=== PATIENT | female | born 1960 | race Caucasian/White ===

== ENCOUNTER 2020-12-23 13:09 | Emergency (ER) | payer OTHER ==
[2020-12-23] MEDS ORDERED: SODIUM CHLORIDE 1,000 ML IV STA (13:39)
[2020-12-23 14:00] VITALS: BP 116/73; PULSE 99; TEMP 99.2; BMI 28.3
[2020-12-23 14:33] LABS: HEMOGLOBIN 9.1 GM/dl (10.7-15.3); MCHC 33.7 g/dl (32.0-36.0); PLATELET COUNT 268 10^3/uL (134-434); RBC 2.23 M/mm3 (3.60-5.2); RDW 18.8 % (11.6-15.6); WHITE BLOOD COUNT 7.6 K/mm3 (4.0-10.8)
[2020-12-23 14:36] LABS: ADD RBC MORPHOLOGY YES; MCH 40.8 pg (25.7-33.7)
[2020-12-23 14:45] LABS: ALBUMIN 3.4 g/dl (3.4-5.0); ALK PHOS 129 U/L (45-117); ANION GAP 7 MMOL/L (8-16); BILIRUBIN,TOTAL 1.3 mg/dl (0.2-1); CALCIUM 8.4 mg/dl (8.5-10); CHLORIDE 98 mmol/L (98-107); CO2 29 mmol/L (21-32); CREATININE 0.7 mg/dl (0.55-1.3); GLUCOSE,RANDOM 108 mg/dl (74-106); SGOT/AST 18 U/L (15-37); SGPT/ALT 12 U/L (13-61); SODIUM 134 mmol/L (136-145); TOT PROT 6.3 g/dl (6.4-8.2)
[2020-12-23 15:13] LABS: ANISOCYTOSIS 2+; MACROCYTOSIS 2+
[2020-12-23 15:14] LABS: PLATELET ESTIMATE ADEQUATE
[2020-12-23 15:21] LABS: LIPASE 75 U/L (73-393)
[2020-12-23] MEDS ORDERED: metroNIDAZOLE 250 MG TABLET PO ONE (17:01)
[2020-12-23] MEDS ORDERED: levoFLOXacin 750 MG TABLET PO ONE (17:02)
[2020-12-23] MEDS ORDERED: metroNIDAZOLE 250 MG TABLET ONE (17:07)
== END 2020-12-23 17:10 | disposition home or self-care (01) ==
LOC: FER 13:09
PROC: 3E0337Z Introduction of Electrolytic and Water Balance Substance into Peripheral Vein, Percutaneous Approach (ICD-10-PCS; principal; 2020-12-23)
DX: K57.92 Diverticulitis of intestine, part unspecified, without perforation or abscess without bleeding (principal)
CPT/HCPCS: 36415; 74177-TC; 80053; 81003; 82550; 83690; 84484; 85025; 99285-25; Q9967

== ENCOUNTER 2022-09-07 14:30 | Inpatient (IN) | payer OTHER ==
[2022-09-07] MEDS ORDERED: ACETAMINOPHEN 1000 MG/100 ML BAG IVPB ONE (15:05)
[2022-09-07] MEDS ORDERED: SODIUM CHLORIDE 0.9% 1000 ML INFUS.BAG IV ONE ×2 (15:05→18:21)
[2022-09-07] MEDS ORDERED: PANTOPRAZOLE SODIUM 40 MG VIAL IVPUSH ONE (15:06)
[2022-09-07] MEDS ORDERED: ACETAMINOPHEN INJECTION 100 ML IVPB ONE (15:45)
[2022-09-07] MEDS ORDERED: PANTOPRAZOLE SODIUM 40 MG VIAL ONE (15:45)
[2022-09-07 15:52] LABS: HEMATOCRIT 28.1 % (32.4-45.2); HEMOGLOBIN 9.4 G/dL (10.7-15.3); MCH 31.8 pg (25.7-33.7); MCHC 33.5 g/dl (32.0-36.0); MEAN PLT VOLUME 7.8 fl (7.5-11.1); PLATELET COUNT 197.5 10^3/uL (134-434); RBC 2.96 10^6/uL (3.60-5.2); RDW 13.9 % (11.6-15.6); WHITE BLOOD COUNT 5.6 10^3/uL (4.0-10.8)
[2022-09-07 15:54] LABS: INR 0.93 (0.83-1.09); PROTHROMBIN TIME (PATIENT) 10.7 SEC (9.7-13.0)
[2022-09-07 15:57] LABS: ACTIVATED PTT 28.7 SECONDS (25.2-36.5)
[2022-09-07 16:00] LABS: ALBUMIN 2.8 g/dl (3.4-5.0); BILIRUBIN,TOTAL 0.8 mg/dl (0.2-1); CALCIUM 8.2 mg/dl (8.5-10); CREATININE 0.9 mg/dl (0.55-1.3); TOT PROT 5.3 g/dl (6.4-8.2)
[2022-09-07 18:18] LABS: LACTIC ACID 5.1 mmol/L (0.4-2.0)
[2022-09-07 18:24] LABS: PLATELET ESTIMATE ADEQUATE
[2022-09-07 19:23] LABS: HEMATOCRIT 20.5 % (32.4-45.2); MCH 31.9 pg (25.7-33.7); MCHC 33.6 g/dl (32.0-36.0); MEAN CELL VOLUME 94.9 fl (80-96); MEAN PLT VOLUME 8.2 fl (7.5-11.1); PLATELET COUNT 151.6 10^3/uL (134-434); RBC 2.16 10^6/uL (3.60-5.2); RDW 13.9 % (11.6-15.6)
[2022-09-07 19:25] LABS: HEMOGLOBIN 6.9 G/dL (10.7-15.3)
[2022-09-07 21:14] VITALS: BMI 26.6
[2022-09-07 22:24] LABS: MCH 32.6 pg (25.7-33.7); MCHC 34.1 g/dl (32.0-36.0); MEAN CELL VOLUME 95.7 fl (80-96); MEAN PLT VOLUME 8.1 fl (7.5-11.1); PLATELET COUNT 157.6 10^3/uL (134-434); RBC 2.09 10^6/uL (3.60-5.2); RDW 13.3 % (11.6-15.6); WHITE BLOOD COUNT 5.3 10^3/uL (4.0-10.8)
[2022-09-07 22:25] LABS: HEMOGLOBIN 6.8 G/dL (10.7-15.3)
[2022-09-08] MEDS: DEXTROSE 5%-NORMAL SALINE 1,000 ML IV SCH (03:30)
[2022-09-08 04:54] LABS: HEMATOCRIT 22.4 % (32.4-45.2); HEMOGLOBIN 7.2 GM/dL (10.7-15.3); MCH 29.5 pg (25.7-33.7); MCHC 32.3 g/dl (32.0-36.0); MEAN CELL VOLUME 91.3 fl (80-96); MEAN PLT VOLUME 8.3 fl (7.5-11.1); PLATELET COUNT 153 10^3/uL (134-434); RBC 2.45 M/mm3 (3.60-5.2); RDW 16.3 % (11.6-15.6); WHITE BLOOD COUNT 4.2 K/mm3 (4.0-10.0)
[2022-09-08] MEDS: INSULIN SLIDING SCALE (NOVOLOG) 1 VIAL SQ SCH ×4 (05:37→22:25)
[2022-09-08 07:23] LABS: MCH 30.1 pg (25.7-33.7); MCHC 32.5 g/dl (32.0-36.0); MEAN CELL VOLUME 92.8 fl (80-96); MEAN PLT VOLUME 8.2 fl (7.5-11.1); PLATELET COUNT 146 10^3/uL (134-434); RBC 2.07 M/mm3 (3.60-5.2); RDW 16.9 % (11.6-15.6); WHITE BLOOD COUNT 4.3 K/mm3 (4.0-10.0)
[2022-09-08 07:40] LABS: HEMATOCRIT 19.2 % (32.4-45.2)
[2022-09-08 08:10] LABS: CHLORIDE 114 mmol/L (98-107); SODIUM 145 mmol/L (136-145)
[2022-09-08 08:13] LABS: HEMOGLOBIN 6.2 GM/dL (10.7-15.3)
[2022-09-08 08:19] LABS: ANION GAP 4 MMOL/L (8-16); BLOOD UREA NITROGEN 17.4 mg/dL (7-18); CO2 27 mmol/L (21-32); GLUCOSE,RANDOM 83 mg/dL (74-106); MAGNESIUM 1.3 mg/dL (1.8-2.4)
[2022-09-08 08:22] LABS: CREATININE 0.6 mg/dL (0.55-1.3); PHOSPHOROUS 3.2 mg/dL (2.5-4.9)
[2022-09-08 08:23] LABS: CALCIUM 6.8 mg/dL (8.5-10.1)
[2022-09-08] MEDS ORDERED: CALCIUM GLUC IN NACL, ISO-OSM 1 GM/50 ML BAG IVPB ONE (08:39)
[2022-09-08] MEDS: PANTOPRAZOLE SODIUM 40 MG VIAL IVPUSH SCH (09:12)
[2022-09-08] MEDS: TIOTROPIUM BROMIDE 2.5 MCG (SPIRIVA) RESPIMAT INHALER IH SCH (09:20)
[2022-09-08] MEDS ORDERED: MAGNESIUM SULF 50% (8.12 MEQ/2 ML-1 GM VIAL) IVPB ONE (09:29)
[2022-09-08 11:53] LABS: CALCIUM 6.7 mg/dL (8.5-10.1)
[2022-09-08 12:17] LABS: BILIRUBIN,DIRECT 0.2 mg/dL (0.0-0.2)
[2022-09-08 12:18] LABS: SGOT/AST 15 U/L (15-37); SGPT/ALT 11 U/L (13-61)
[2022-09-08 12:19] LABS: TOT PROT 4.1 g/dl (6.4-8.2)
[2022-09-08 12:20] LABS: BILIRUBIN,TOTAL 0.5 mg/dL (0.2-1)
[2022-09-08 12:21] LABS: ALK PHOS 59 U/L (45-117)
[2022-09-08 15:12] LABS: BASO % 0.6 % (0-2.0); EOS % 1.2 % (0-4.5); HEMATOCRIT 22.5 % (32.4-45.2); HEMOGLOBIN 7.2 GM/dL (10.7-15.3); LYMPH % 33.4 % (8-40); MCH 28.3 pg (25.7-33.7); MCHC 32.1 g/dl (32.0-36.0); MEAN CELL VOLUME 88.3 fl (80-96); MEAN PLT VOLUME 7.2 fl (7.5-11.1); MONO % 6.9 % (3.8-10.2); NEUT % 57.9 % (42.8-82.8); PLATELET COUNT 139 10^3/uL (134-434); RBC 2.55 M/mm3 (3.60-5.2); RDW 18.2 % (11.6-15.6); WHITE BLOOD COUNT 4.1 K/mm3 (4.0-10.0)
[2022-09-08] MEDS: AMITRIPTYLINE HCL 50 MG TABLET PO SCH (22:13)
[2022-09-09] MEDS: DEXTROSE 5%-NORMAL SALINE 1,000 ML IV SCH ×3 (01:57→16:03)
[2022-09-09] MEDS: INSULIN SLIDING SCALE (NOVOLOG) 1 VIAL SQ SCH ×4 (06:08→23:16)
[2022-09-09 07:18] LABS: BASO % 0.3 % (0-2.0); EOS % 1.5 % (0-4.5); HEMATOCRIT 20.9 % (32.4-45.2); LYMPH % 28.2 % (8-40); MCH 29.3 pg (25.7-33.7); MCHC 33.5 g/dl (32.0-36.0); MEAN CELL VOLUME 87.4 fl (80-96); MEAN PLT VOLUME 7.4 fl (7.5-11.1); MONO % 7.1 % (3.8-10.2); NEUT % 62.9 % (42.8-82.8); PLATELET COUNT 136 10^3/uL (134-434); RBC 2.39 M/mm3 (3.60-5.2); RDW 18.9 % (11.6-15.6); WHITE BLOOD COUNT 3.8 K/mm3 (4.0-10.0)
[2022-09-09 07:44] LABS: CHLORIDE 113 mmol/L (98-107); SODIUM 143 mmol/L (136-145)
[2022-09-09 07:50] LABS: GLUCOSE,RANDOM 101 mg/dL (74-106)
[2022-09-09 07:52] LABS: ANION GAP 3 MMOL/L (8-16); CO2 28 mmol/L (21-32); MAGNESIUM 1.4 mg/dL (1.8-2.4)
[2022-09-09 07:53] LABS: SGPT/ALT 13 U/L (13-61)
[2022-09-09 07:54] LABS: CREATININE 0.5 mg/dL (0.55-1.3); PHOSPHOROUS 2.7 mg/dL (2.5-4.9); SGOT/AST 17 U/L (15-37)
[2022-09-09 07:56] LABS: ALK PHOS 62 U/L (45-117); TOT PROT 4.2 g/dl (6.4-8.2)
[2022-09-09 07:59] LABS: BILIRUBIN,TOTAL 0.3 mg/dL (0.2-1); CALCIUM 6.8 mg/dL (8.5-10.1)
[2022-09-09] MEDS ORDERED: MAGNESIUM SULF 50% (8.12 MEQ/2 ML-1 GM VIAL) IVPB ONE (09:16)
[2022-09-09] MEDS: PANTOPRAZOLE SODIUM 40 MG VIAL IVPUSH SCH (09:32)
[2022-09-09] MEDS: TIOTROPIUM BROMIDE 2.5 MCG (SPIRIVA) RESPIMAT INHALER IH SCH (09:34)
[2022-09-09 10:15] LABS: BASO % 0.4 % (0-2.0); EOS % 1.3 % (0-4.5); HEMATOCRIT 22.1 % (32.4-45.2); HEMOGLOBIN 7.3 GM/dL (10.7-15.3); LYMPH % 26.5 % (8-40); MCH 29.2 pg (25.7-33.7); MCHC 32.9 g/dl (32.0-36.0); MEAN CELL VOLUME 88.9 fl (80-96); MEAN PLT VOLUME 7.6 fl (7.5-11.1); MONO % 6.4 % (3.8-10.2); NEUT % 65.4 % (42.8-82.8); PLATELET COUNT 146 10^3/uL (134-434); RBC 2.48 M/mm3 (3.60-5.2); RDW 18.9 % (11.6-15.6); WHITE BLOOD COUNT 3.9 K/mm3 (4.0-10.0)
[2022-09-09] MEDS ORDERED: DEXTROSE 5%-NORMAL SALINE 1,000 ML IV SCH (12:32)
[2022-09-09] MEDS ORDERED: IRON SUCROSE INJECTION 100 MG in SODIUM CHLORIDE 95 ML IVPB ONE (15:52)
[2022-09-09] MEDS: AMITRIPTYLINE HCL 50 MG TABLET PO SCH (22:02)
[2022-09-10] MEDS: INSULIN SLIDING SCALE (NOVOLOG) 1 VIAL SQ SCH ×4 (05:27→23:33)
[2022-09-10 07:47] LABS: BLOOD UREA NITROGEN 7.4 mg/dL (7-18); CALCIUM 7.5 mg/dL (8.5-10.1); MAGNESIUM 1.6 mg/dL (1.8-2.4)
[2022-09-10 07:50] LABS: CREATININE 0.6 mg/dL (0.55-1.3); PHOSPHOROUS 3.3 mg/dL (2.5-4.9)
[2022-09-10 07:53] LABS: BILIRUBIN,TOTAL 0.2 mg/dL (0.2-1); TOT PROT 4.2 g/dl (6.4-8.2)
[2022-09-10 07:54] LABS: BASO % 0.4 % (0-2.0); EOS % 1.3 % (0-4.5); HEMATOCRIT 20.8 % (32.4-45.2); LYMPH % 24.2 % (8-40); MCH 30.3 pg (25.7-33.7); MCHC 33.8 g/dl (32.0-36.0); MEAN CELL VOLUME 89.6 fl (80-96); MEAN PLT VOLUME 7.7 fl (7.5-11.1); MONO % 7.4 % (3.8-10.2); NEUT % 66.7 % (42.8-82.8); PLATELET COUNT 151 10^3/uL (134-434); RBC 2.32 M/mm3 (3.60-5.2); RDW 17.7 % (11.6-15.6)
[2022-09-10] MEDS ORDERED: MAGNESIUM SULF 50% (8.12 MEQ/2 ML-1 GM VIAL) IVPB ONE (09:11)
[2022-09-10] MEDS: PANTOPRAZOLE SODIUM 40 MG VIAL IVPUSH SCH (09:43)
[2022-09-10] MEDS: TIOTROPIUM BROMIDE 2.5 MCG (SPIRIVA) RESPIMAT INHALER IH SCH (09:45)
[2022-09-10] MEDS ORDERED: BISACODYL 5 MG TABLET.DR (FP) PO ONE (16:00)
[2022-09-10] MEDS: DEXTROSE 5%-NORMAL SALINE 1,000 ML IV SCH (16:37)
[2022-09-10] MEDS ORDERED: PEG 3350/NA SULF BICARB CL/KCL 4000 ML SOLN.RECON PO ONE (17:00)
[2022-09-10] MEDS: AMITRIPTYLINE HCL 50 MG TABLET PO SCH (22:33)
[2022-09-10] MEDS: ALBUTEROL SO4 HFA INHALER IH PRN (23:25)
[2022-09-11] MEDS: INSULIN SLIDING SCALE (NOVOLOG) 1 VIAL SQ SCH ×4 (06:31→22:27)
[2022-09-11 08:17] LABS: BASO % 0.3 % (0-2.0); EOS % 1.1 % (0-4.5); HEMATOCRIT 21.2 % (32.4-45.2); LYMPH % 24.3 % (8-40); MCH 29.5 pg (25.7-33.7); MEAN CELL VOLUME 89.4 fl (80-96); MEAN PLT VOLUME 7.6 fl (7.5-11.1); NEUT % 66.3 % (42.8-82.8); PLATELET COUNT 155 10^3/uL (134-434); RBC 2.37 M/mm3 (3.60-5.2); RDW 17.7 % (11.6-15.6); WHITE BLOOD COUNT 4.6 K/mm3 (4.0-10.0)
[2022-09-11 08:36] LABS: INR 0.97 (0.83-1.09); PROTHROMBIN TIME (PATIENT) 11.2 SEC (9.7-13.0)
[2022-09-11 08:44] LABS: CALCIUM 7.5 mg/dL (8.5-10.1)
[2022-09-11 08:45] LABS: BLOOD UREA NITROGEN 7.6 mg/dL (7-18); MAGNESIUM 1.7 mg/dL (1.8-2.4)
[2022-09-11 08:48] LABS: CREATININE 0.6 mg/dL (0.55-1.3)
[2022-09-11] MEDS: PANTOPRAZOLE SODIUM 40 MG VIAL IVPUSH SCH (10:44)
[2022-09-11] MEDS: TIOTROPIUM BROMIDE 2.5 MCG (SPIRIVA) RESPIMAT INHALER IH SCH (10:44)
[2022-09-11] MEDS ORDERED: MAGNESIUM 2GM/50ML STERILE WATER IVPB IVPB ONE (13:00)
[2022-09-11] MEDS ORDERED: IRON SUCROSE INJECTION 100 MG in SODIUM CHLORIDE 95 ML IVPB ONE (14:00)
[2022-09-11] MEDS: AMITRIPTYLINE HCL 50 MG TABLET PO SCH (22:26)
[2022-09-11] MEDS: DEXTROSE 5%-NORMAL SALINE 1,000 ML IV SCH (22:27)
[2022-09-11] MEDS: ALBUTEROL SO4 HFA INHALER IH PRN (22:36)
[2022-09-12] MEDS: INSULIN SLIDING SCALE (NOVOLOG) 1 VIAL SQ SCH ×2 (07:11→12:14)
[2022-09-12 08:22] LABS: HEMATOCRIT 19.1 % (32.4-45.2); MCH 30.7 pg (25.7-33.7); MCHC 33.6 g/dl (32.0-36.0); MEAN CELL VOLUME 91.1 fl (80-96); MEAN PLT VOLUME 7.6 fl (7.5-11.1); PLATELET COUNT 168 10^3/uL (134-434); RBC 2.09 M/mm3 (3.60-5.2); RDW 17.6 % (11.6-15.6); WHITE BLOOD COUNT 4.4 K/mm3 (4.0-10.0)
[2022-09-12 08:39] LABS: ALBUMIN 1.9 g/dl (3.4-5.0); MAGNESIUM 1.7 mg/dL (1.8-2.4)
[2022-09-12 08:42] LABS: CALCIUM 7.6 mg/dL (8.5-10.1); CREATININE 0.7 mg/dL (0.55-1.3)
[2022-09-12 08:43] LABS: BLOOD UREA NITROGEN 8.1 mg/dL (7-18); PHOSPHOROUS 3.6 mg/dL (2.5-4.9)
[2022-09-12 08:44] LABS: BILIRUBIN,TOTAL 0.7 mg/dL (0.2-1); TOT PROT 4.2 g/dl (6.4-8.2)
[2022-09-12 08:54] LABS: HEMOGLOBIN 6.4 GM/dL (10.7-15.3)
[2022-09-12] MEDS: PANTOPRAZOLE SODIUM 40 MG VIAL IVPUSH SCH (10:05)
[2022-09-12] MEDS: TIOTROPIUM BROMIDE 2.5 MCG (SPIRIVA) RESPIMAT INHALER IH SCH (10:06)
[2022-09-12] MEDS ORDERED: ACETAMINOPHEN 325 MG TABLET (FP) PO PRN (10:24)
[2022-09-12 13:31] VITALS: BP 130/57; PULSE 90; RESP 15; TEMP 98.1
[2022-09-12] MEDS ORDERED: MAGNESIUM 1GM/D5W 100ML - 100 ML IVPB IVPB ONE (15:00)
[2022-09-12 16:13] LABS: HEMATOCRIT 23.6 % (32.4-45.2); HEMOGLOBIN 7.8 GM/dL (10.7-15.3); MCH 29.3 pg (25.7-33.7); MEAN CELL VOLUME 88.7 fl (80-96); MEAN PLT VOLUME 7.5 fl (7.5-11.1); PLATELET COUNT 172 10^3/uL (134-434); RBC 2.66 M/mm3 (3.60-5.2); RDW 16.7 % (11.6-15.6); WHITE BLOOD COUNT 5.3 K/mm3 (4.0-10.0)
[2022-09-12] MEDS ORDERED: INSULIN SLIDING SCALE (NOVOLOG) 1 VIAL SQ SCH (16:30)
[2022-09-12] MEDS ORDERED: INSULIN (NOVOLOG) ASPART 100 UNITS/ML 10ML VIAL ONE (17:43)
[2022-09-12] MEDS ORDERED: BUDESONIDE/FORMETEROL FUMARATE 160/4.5 mcg INHALER IH SCH (22:00)
== END 2022-09-12 19:13 | disposition home or self-care (01) | DRG 378 ==
LOC: FER 14:30 → FM/S 20:35 → J2W 09-08 04:30 → J7W 09-10 13:31
PROVIDERS: ADMIT Internal Medicine; ATTEND Internal Medicine
PROC: 30233N1 Transfusion of Nonautologous Red Blood Cells into Peripheral Vein, Percutaneous Approach (ICD-10-PCS; principal; 2022-09-07)
PROC: 0DBP8ZX Excision of Rectum, Via Natural or Artificial Opening Endoscopic, Diagnostic (ICD-10-PCS; 2022-09-11)
PROC: 0DBN8ZX Excision of Sigmoid Colon, Via Natural or Artificial Opening Endoscopic, Diagnostic (ICD-10-PCS; 2022-09-11)
DX: K92.2 Gastrointestinal hemorrhage, unspecified (principal); D62 Acute posthemorrhagic anemia; K57.90 Diverticulosis of intestine, part unspecified, without perforation or abscess without bleeding; K21.9 Gastro-esophageal reflux disease without esophagitis; I10 Essential (primary) hypertension; E78.5 Hyperlipidemia, unspecified; E11.9 Type 2 diabetes mellitus without complications; F32.A Depression, unspecified; M79.7 Fibromyalgia; J44.9 Chronic obstructive pulmonary disease, unspecified; K76.0 Fatty (change of) liver, not elsewhere classified; E83.51 Hypocalcemia; E83.42 Hypomagnesemia; D12.5 Benign neoplasm of sigmoid colon; D12.8 Benign neoplasm of rectum
CPT/HCPCS: 36415; 36430; 36511; 71045-TC-FY; 74177-TC; 80048; 80053; 80076; 82272; 82310; 82330; 82962; 83605; 83735; 84100; 85025; 85027; 85610; 85730; 86850; 86900; 86901; 86922; 88305-TC; 93005; 99285-25; C9803-CS; J1756; P9038; P9058; Q9967; U0003; U0005